=== PATIENT | female | born 1990 | race Caucasian/White ===

== ENCOUNTER 2017-01-04 15:24 | Emergency (ER) | payer SELFPAY ==
[~2017-01-04] VITALS: Ht 160 cm; Wt 59.0 kg
[2017-01-04 15:40] VITALS: TEMP 36.9; Ht 160 cm; Wt 59.0 kg
[2017-01-04] MEDS ORDERED: PREN0.12 PO (17:01)
[2017-01-04] MEDS ORDERED: SODIUM CHLORIDE 0.9% 1000ML 1,000 ML IV STA (17:28)
[2017-01-04 17:57] LABS: BASO % 0.1 %; BASO ABS # 0.01 K/uL (0-0.2); COMPLETE YES; EOS % 0.8 %; IG% 0.1 %; LYMPH % 28.1 %; MEAN CELL VOLUME 90.3 fL (80-100); MEAN CORPUSCULAR HEMOGLOBIN 31.9 pg (25-34); MEAN CORPUSCULAR HGB CONC 35.4 g/dl (32-36); MEAN PLATELET VOLUME 8.9 fL (7.4-10.4); MONO % 5.9 %; PLATELET COUNT 312 K/uL (130-400); RED BLOOD COUNT 4.32 M/uL (4.2-5.4); WHITE BLOOD COUNT 9.26 K/uL (4.8-10.8)
[2017-01-04 18:15] LABS: BUN/CREATININE RATIO 11.5 (10-20); CALCIUM 9.3 mg/dl (8.5-10.1); CREATININE 0.66 mg/dl (0.60-1.20); POTASSIUM 3.8 mmol/L (3.5-5.1)
[2017-01-04 18:23] LABS: URINE APPEARANCE CLOUDY (CLEAR); URINE BILIRUBIN NEG (NEG); URINE COLOR YELLOW; URINE EPITHELIAL CELL AUTO >30 /lpf (0-5); URINE NITRITE NEG (NEG); URINE PH 8.5 (4.5-7.5); URINE SPECIFIC GRAVITY 1.021 (1.000-1.030); UROBILINOGEN NEG (NEG); ZZUR CULT IF INDIC CLEAN CATCH YES
[2017-01-04 18:43] LABS: MANUAL MICROSCOPIC REQUIRED? NO; REVIEW REQ? YES; SULFASALICYLIC ACID NEG (NEG)
[2017-01-04 18:45] LABS: URINE MUCUS PRESENT (NONE PRSENT)
--- NOTE | 2017-01-04 20:04 | DIAGNOSTIC IMAGING REPORT ---
Limited ultrasound <14 WKS SINGLE CLINICAL HISTORY: pelvic pain TECHNIQUE: Ultrasound COMPARISON STUDY: None FINDINGS: Intrauterine gestational sac is confirmed. Estimated gestational age is 6 weeks. heart rate is confirmed. Small subchorionic bleed measuring 9 mm at maximum. The ovaries are unremarkable. IMPRESSION: Single, viable intrauterine estimated at 6 weeks gestational age. Small 9 mm subchorionic hematoma. Electronically signed by: Augustine Gan M.D. 01/04/2017 8:03 PM Dictated Date/Time: 01/04/2017 8:02 PM
[2017-01-04 20:34] VITALS: BP 96/49; PULSE 77; O2SAT 98
--- NOTE | 2017-01-04 20:56 | EMERGENCY ROOM VISIT NOTE ---
History First contact with patient: 16:41 Chief Complaint: OTHER COMPLAINT Stated Complaint: CRAMPING/PAIN-APPROX. 1 MTH History of Present Illness The patient is a 26 year old female who presents to the Emergency Department by private vehicle for evaluation of her lower abdominal Pain. The patient reports that she is approximately one month . She reports that this is her first . She denies any vaginal bleeding or spotting. She reports that she is been nauseated and has had occasional chills. She's had no vomiting. There is been no fevers, headaches, distance, lightheadedness, chest pain, palpitations, shortness of breath, hematemesis, hematochezia, melena, hematuria, or dysuria. She rates her current discomfort as a 4/10. 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 Review of Systems A complete 10-point Review of Systems was discussed with the patient, with pertinent positives and negatives listed in the History of Present Illness. All remaining Review of Systems questions can be considered negative unless otherwise specified. Past Medical/Surgical History Medical Problems: (1) History of orthopedic surgery (2) Migraine Family History Diabetes mellitus FH: cancer FH: gallbladder disease FH: heart disease FH: lung disease Hypertension Kidney disease Kidney stones Social History Smoking Status: Current Every Day Smoker Smokeless Tobacco Use: No Alcohol Use: occasionally Drug Use: none Marital Status: in relationship Housing Status: lives with significant other Occupation Status: unemployed Current/Historical Medications Scheduled Vit W/ Ferrous Fumara (), 2 TABS PO DAILY Allergies Coded Allergies: No Known Allergies (Unverified , 02/12/16) Physical Exam Vital Signs Date Time Temp Pulse Resp B/P Pulse Ox O2 Delivery O2 Flow Rate FiO2 01/04/17 20:34 77 16 96/49 98 Room Air 01/04/17 17:51 75 16 92/58 97 Room Air 01/04/17 15:40 36.9 98 20 113/80 99 Room Air Pain Rating (0-10): 4 Physical Exam VITAL SIGNS - Vital signs and nursing notes were reviewed. GENERAL - 26-year-old female appearing her stated age who is in no acute distress. Communicates well with provider and answers questions appropriately. LUNGS - Chest wall symmetric without accessory muscle use, intercostals retractions, or central cyanosis. Normal vesicular breath sounds CTA B/L. No wheezes, rales, or rhonchi appreciated. CARDIAC - RRR with S1/S2. No murmur, rubs, or gallops appreciated. ABDOMEN - Abdominal contour flat and without pulsations or visible masses. BS normoactive all four quadrants. No tenderness to palpation appreciated throughout. No guarding. No Rebound Tenderness. Negative Rovsing's. Negative Huerta's. No palpable masses, hepatosplenomegaly, or ascites noted. PSYCH - A&Ox3 and cooperates fully with examiner. Pt is very pleasant and interacts well with examiner. Medical Decision & Procedures ER Provider Diagnostic Interpretation: Radiological imaging and reports were reviewed by myself. Radiologist's Interpretation as follows: Limited ultrasound <14 WKS SINGLE CLINICAL HISTORY: pelvic pain TECHNIQUE: Ultrasound COMPARISON STUDY: None FINDINGS: Intrauterine gestational sac is confirmed. Estimated gestational age is 6 weeks. heart rate is confirmed. Small subchorionic bleed measuring 9 mm at maximum. The ovaries are unremarkable. IMPRESSION: Single, viable intrauterine estimated at 6 weeks gestational age. Small 9 mm subchorionic hematoma. Laboratory Results 01/04/17 17:40 Red Blood Count 4.32, Mean Corpuscular Volume 90.3, Mean Corpuscular Hemoglobin 31.9, Mean Corpuscular Hemoglobin Concent 35.4, Mean Platelet Volume 8.9, Neutrophils (%) (Auto) 65.0, Lymphocytes (%) (Auto) 28.1, Monocytes (%) (Auto) 5.9, Eosinophils (%) (Auto) 0.8, Basophils (%) (Auto) 0.1, Neutrophils # (Auto) 6.02, Lymphocytes # (Auto) 2.60, Monocytes # (Auto) 0.55, Eosinophils # (Auto) 0.07, Basophils # (Auto) 0.01 01/04/17 17:40 Test 01/04/17 17:25 01/04/17 17:40 Urine Color YELLOW Urine Appearance CLOUDY (CLEAR) Urine pH 8.5 (4.5-7.5) Urine Specific [place] 1.021 (1.000-1.030) Urine Protein NEG (NEG) Urine Glucose (UA) NEG (NEG) Urine Ketones 1+ (NEG) Urine Occult Blood NEG (NEG) Urine Nitrite NEG (NEG) Urine Bilirubin NEG (NEG) Urine Urobilinogen NEG (NEG) Urine Leukocyte Esterase NEG (NEG) Urine WBC (Auto) 1-5 /hpf (0-5) Urine RBC (Auto) 0-4 /hpf (0-4) Urine Hyaline Casts (Auto) /lpf (0-5) Urine Epithelial Cells (Auto) >30 /lpf (0-5) Urine Bacteria (Auto) 2+ (NEG) Urine Pathogenic Casts /lpf (0) Urine Mucus PRESENT (NONE PRSENT) Urine Test POS (NEG) White Blood Count 9.26 K/uL (4.8-10.8) Red Blood Count 4.32 M/uL (4.2-5.4) Hemoglobin 13.8 g/dL (12.0-16.0) Hematocrit 39.0 % (37-47) Mean Corpuscular Volume 90.3 fL (80-100) Mean Corpuscular Hemoglobin 31.9 pg (25-34) Mean Corpuscular Hemoglobin Concent 35.4 g/dl (32-36) Platelet Count 312 K/uL (130-400) Mean Platelet Volume 8.9 fL (7.4-10.4) Neutrophils (%) (Auto) 65.0 % Lymphocytes (%) (Auto) 28.1 % Monocytes (%) (Auto) 5.9 % Eosinophils (%) (Auto) 0.8 % Basophils (%) (Auto) 0.1 % Neutrophils # (Auto) 6.02 K/uL (1.4-6.5) Lymphocytes # (Auto) 2.60 K/uL (1.2-3.4) Monocytes # (Auto) 0.55 K/uL (0.11-0.59) Eosinophils # (Auto) 0.07 K/uL (0-0.5) Basophils # (Auto) 0.01 K/uL (0-0.2) RDW Standard Deviation 43.6 fL (36.4-46.3) RDW Coefficient of Variation 13.2 % (11.5-14.5) Immature Granulocyte % (Auto) 0.1 % Immature Granulocyte # (Auto) 0.01 K/uL (0.00-0.02) Anion Gap 10.0 mmol/L (3-11) Est Creatinine Clear Calc Drug Dose 107.8 ml/min Estimated GFR () 142.3 Estimated GFR (Non- 122.8 BUN/Creatinine Ratio 11.5 (10-20) Calcium Level 9.3 mg/dl (8.5-10.1) Total Bilirubin 0.5 mg/dl (0.2-1) Aspartate Amino Transf (AST/SGOT) 8 U/L (15-37) Alanine Aminotransferase (ALT/SGPT) 14 U/L (12-78) Alkaline Phosphatase 83 U/L (45-117) Total Protein 7.5 gm/dl (6.4-8.2) Albumin 3.8 gm/dl (3.4-5.0) Globulin 3.7 gm/dl (2.5-4.0) Albumin/Globulin Ratio 1.0 (0.9-2) Lipase 87 U/L (73-393) Human Chorionic Gonadotropin, Quant 09528 mIU/mL Date/Time Source Procedure Growth Status 01/04/17 17:25 Urine , Clean Catch Urine Culture - Final Gardnerella-Like Bacilli Complete Medications Administered Medications (Trade) Dose Ordered Sig/Vicky Route Start Time Stop Time Status Last Admin Dose Admin Sodium Chloride (Nss 1000ml) 1,000 ml @ 999 mls/hr Q1H1M STAT IV 01/04/17 17:28 01/04/17 18:28 DC 01/04/17 17:43 999 MLS/HR ED Course Patient was seen and evaluated by myself. Labs were drawn, saline lock in place. Patient was hydrated with a 1000 mL normal saline bolus. Pelvic ultrasound was obtained. Laboratory results demonstrate no acute leukocytosis, worrisome anemia, or bandemia. The patient has no significant electrolyte abnormalities. Quantitative hCG and beta hCG are positive. Ultrasound as above. Laboratory results and imaging studies were reviewed with the patient who acknowledges understanding. She was encouraged to follow-up with her OB/ LAB HEAD from today's visit. She was educated on worrisome symptoms for return visit to the emergency department. Patient discharged home afebrile and in good condition. Medical Decision Given the patient's presentation and stated complaints, I did elect to perform the above-mentioned workup. The patient presents with nausea and pelvic cramping. She has no fever leukocytosis. She is concerned about the . Ultrasound demonstrates no acute findings otherwise. Her labs demonstrate no other acute findings. The patient will follow closely with her SQL DAT[employer] PROGRAMMER as scheduled. She will return for any changing or worsening symptoms. Patient discharged home afebrile and in good condition. In the evaluation and treatment of this patient, the following differential diagnoses were considered: Ectopic, threatened , UTI, appendicitis, amongst others. Impression Primary Impression: Additional Impression: Pelvic cramping Departure Information Dispostion Home / Self-Care Condition GOOD Referrals No Doctor, Assigned (PCP) Patient Instructions My [facility] Additional Instructions You have been treated in the Emergency Department your Pelvic Pain in First Trimester. For pain control, you can use the following [id number] medicines (if >12 yo): - Regular strength (325mg/tab) Tylenol (acetaminophen) 2 tabs every 4-6 hours as needed. Do not exceed 12 tablets in a 24 hour period. Avoid taking more than 4 grams (4000 mg) of Tylenol per day. This includes any other sources of acetaminophen you may take on a regular basis. Drink plenty of water and stay well hydrated. All of your SQL DAT[employer]ASE PROGRAMMER from today's visit. Return to the emergency department if your symptoms persist despite treatment plan outlined above or if the following symptoms occur: increased fevers, chills , worsening nausea/vomiting, blood in your stool or urine. Problem Qualifiers Primary Impression: Weeks of gestation: less than 8 weeks Qualified Codes: Z3A.01 - Less than 8 weeks gestation of
[2017-08-01] MEDS ORDERED: PEDICHW34 (07:42)
== END 2017-01-04 21:02 | disposition home or self-care (01) ==
LOC: C.EDB 15:25 → C.EDA 21:02
DX: O26.91 Pregnancy related conditions, unspecified, first trimester (principal); Z3A.01 Less than 8 weeks gestation of pregnancy; R10.2 Pelvic and perineal pain; F17.200 Nicotine dependence, unspecified, uncomplicated; Z83.3 Family history of diabetes mellitus; Z80.9 Family history of malignant neoplasm, unspecified; Z83.79 Family history of other diseases of the digestive system; Z82.49 Family history of ischemic heart disease and other diseases of the circulatory system; Z84.1 Family history of disorders of kidney and ureter

== ENCOUNTER → 2017-01-19 | Outpatient (CLI) | payer BC, OTHER ==
[~2017-01-19] MED LIST: FERR1TAB23; PEDICHW34; PREN0.12 PO
== END | disposition home or self-care (01) ==
LOC: C.PAPS 14:52
PROVIDERS: ATTEND Obstetrics & Gynecology
DX: Z01.419 Encounter for gynecological examination (general) (routine) without abnormal findings (principal)

== ENCOUNTER 2017-04-03 20:46 | Outpatient (CLI) | payer OTHER ==
[~2017-04-03] VITALS: Ht 160 cm; Wt 61.0 kg
[~2017-04-03 20:46] MED LIST changes: -FERR1TAB23; -PEDICHW34
[2017-04-03 21:27] VITALS: Ht 160 cm; Wt 61.0 kg
[2017-04-03 21:47] LABS: URINE APPEARANCE CLEAR (CLEAR); URINE BILIRUBIN NEG (NEG); URINE COLOR YELLOW; URINE NITRITE NEG (NEG); URINE SPECIFIC GRAVITY 1.002 (1.000-1.030); UROBILINOGEN NEG (NEG); ZZUR CULT IF INDIC CLEAN CATCH YES
[2017-04-03 21:49] LABS: MANUAL MICROSCOPIC REQUIRED? NO; REVIEW REQ? YES
[2017-04-03 22:12] LABS: URINE EPITHELIAL CELL AUTO >30 /lpf (0-5)
[2017-08-01] MEDS ORDERED: PEDICHW34 (07:42)
== END 2017-04-03 22:20 | disposition home or self-care (01) ==
LOC: C.OPB 20:46 → C.LD 20:46 → C.OPB 22:20
PROVIDERS: ATTEND Obstetrics & Gynecology
DX: O99.89 Other specified diseases and conditions complicating pregnancy, childbirth and the puerperium (principal); R39.15 Urgency of urination; R10.9 Unspecified abdominal pain; O99.332 Smoking (tobacco) complicating pregnancy, second trimester; F17.200 Nicotine dependence, unspecified, uncomplicated; Z3A.18 18 weeks gestation of pregnancy

== ENCOUNTER → 2017-04-10 | Outpatient (CLI) | payer OTHER ==
[~2017-04-10] MED LIST changes: +FERR1TAB23; +PEDICHW34
[2017-04-14 19:24] LABS: HSV1 AB IGM Negative (Negative); HSV2 AB IGM Negative (Negative); TOXOPLASMA GONDII IGM Negative (Negative)
== END | disposition home or self-care (01) ==
LOC: C.LAB1850 15:30
PROVIDERS: ATTEND Obstetrics & Gynecology
DX: O43.109 Malformation of placenta, unspecified, unspecified trimester (principal); Z3A.00 Weeks of gestation of pregnancy not specified

== ENCOUNTER → 2017-06-05 | Outpatient (CLI) | payer OTHER ==
[2017-06-05 14:35] LABS: URINE APPEARANCE CLOUDY (CLEAR); URINE BILIRUBIN NEG (NEG); URINE COLOR YELLOW; URINE EPITHELIAL CELL AUTO >30 /lpf (0-5); URINE NITRITE NEG (NEG); URINE PH 6.5 (4.5-7.5); UROBILINOGEN NEG (NEG)
[2017-06-05 14:36] LABS: MANUAL MICROSCOPIC REQUIRED? NO; REVIEW REQ? NO
[2017-06-05 15:01] LABS: GTGD 50 Grams
== END | disposition home or self-care (01) ==
LOC: C.LAB1850 12:51
PROVIDERS: ATTEND Obstetrics & Gynecology
DX: Z34.02 Encounter for supervision of normal first pregnancy, second trimester (principal)

== ENCOUNTER 2017-06-27 21:27 | Outpatient (CLI) | payer OTHER ==
[~2017-06-27] VITALS: Ht 160 cm; Wt 68.0 kg
[~2017-06-27 21:27] MED LIST changes: -FERR1TAB23; -PEDICHW34
[2017-06-27] MEDS ORDERED: FERR1TAB23 (21:51)
[2017-06-27 21:52] VITALS: Ht 160 cm; Wt 68.0 kg
--- NOTE | 2017-06-29 08:52 | EDITING REQUIRED CODING QUERY ---
DIAGNOSIS NEEDED To promote full compliance with coding requirements relating to patient care, physician participation is requested in all cases of fire control officer uncertainty. Please assist us with the question(s) below: Coding Question: The patient received care in labor and delivery on 06/27/17 as noted within the record. Please document the diagnosis that is being addressed by the medication/treatment. Provider Response: DIAGNOSIS: Uterine cramping, r/o labor Thank you for your assistance, Abby Sloan - Producer Arborist Manager
[2017-08-01] MEDS ORDERED: PEDICHW34 (07:42)
== END 2017-06-27 22:17 | disposition home or self-care (01) ==
LOC: C.LD 21:27 → C.OPB 21:27
PROVIDERS: ATTEND Obstetrics & Gynecology
DX: O26.893 Other specified pregnancy related conditions, third trimester (principal); Z3A.31 31 weeks gestation of pregnancy